=== PATIENT | male | born 1995 | race African-American/Black ===

== ENCOUNTER 2023-08-02 22:11 | Emergency (ER) | payer OTHER ==
[2023-08-02 22:16] VITALS: BP 112/74; PULSE 71; RESP 18; TEMP 99.2
--- NOTE | 2023-08-02 22:17 | ED ---
General Adult HPI - General Stated complaint: Tooth Pain Time Seen by Provider: 08/02/23 22:15 Source: RN notes reviewed - History of Present Illness Initial comments: 28-year-old -[place] male presents to the emergency department with a chief complaint of dental pain 4 days. She reports that he attempted to call his dentist however he is unable to get an appointment until September. He reports worsening pain to her upper and lower mouth region. Denies any known fevers, chills. He's been taking Tylenol Motrin with mild symptomatic relief. Denies difficulty in breathing. Denies recent antibiotic use. he reports that he believes he may have a dental abscess. - Related Data Previous Rx's Medication Instructions Recorded Amoxic-Pot Clav 875-125Mg 1 tab PO Q12HR #20 tab 08/02/23 [Augmentin 875-125] Ibuprofen [Motrin] 800 mg PO Q6HR #30 tab 08/02/23 Allergies Allergy/AdvReac Type Severity Reaction Status Date / Time No Known Allergies Allergy Verified 08/02/23 22:16 Review of Systems ROS Statement: Those systems with pertinent positive or pertinent negative responses have been documented in the HPI. ROS Other: All systems not noted in ROS Statement are negative. General Exam - General Exam Comments Initial Comments: Visual Physical Exam Vital signs reviewed General: Well-appearing, nontoxic, no acute distress. Head: Normocephalic, atraumatic Eyes: PERRLA, EOMI ENT: Airway patent Chest: Nonlabored breathing Skin: No visual rash, normal skin tone Neuro: Alert and oriented 3 Musculoskeletal: No gross abnormalities I performed the quick note portion of this exam, verbal signature Nona Blair PA-C General: Alert, in no acute distress Head: atraumatic normocephalic. Eyes PERRL, EOMI intact, mucous membranes moist, cavity with poor dentition. With severe tooth decay in upper and lower molars. No evidence of dental abscess. Airway patent. Respiratory: Lungs clear to auscultation bilaterally Cardiovascular: Heart rate regular rate and rhythm Abdominal: Soft without guarding or rebound Extremities: Normal inspection with full range of motion and normal capillary refill Neuroogic: alert and oriented 3, CN II-XII intact, able to ambulate with steady gait Skin: warm dry and intact with normal color Course Vital Signs 08/02/23 22:13 Temperature 99.2 F Pulse Rate 71 Respiratory 18 Rate Blood Pressure 112/74 O2 Sat by Pulse 99 Oximetry Medical Decision Making - Medical Decision Making Was pt. sent in by a medical professional or institution (GONSALO Dykes, PRODUCTION SUPPORT SPECIALIST, urgent care, hospital, or senior living...) When possible be specific @ -[No] Did you speak to anyone other than the patient for history (EMS, parent, family, police, friend...)? What history was obtained from this source @ -[No] Did you review nursing and triage notes (agree or disagree)? Why? @ -[I reviewed and agree with nursing and triage notes] Were old charts reviewed (outside hosp., previous admission, EMS record, old EKG, old radiological studies, urgent care reports/EKG's, senior living records)? Report findings @ -[No old charts were reviewed] Differential Diagnosis (chest pain, altered mental status, abdominal pain women, abdominal pain men, vaginal bleeding, weakness, fever, dyspnea, syncope, headache, dizziness, GI bleed, back pain, seizure, CVA, palpatations, mental health, musculoskeletal)? @ -[not applicable] EKG interpreted by me (3pts min.). @ -[As above] X-rays interpreted by me (1pt min.). @ -[None done] CT interpreted by me (1pt min.). @ -[None done] U/S interpreted by me (1pt. min.). @ -[None done] What testing was considered but not performed or refused? (CT, X-rays, U/S, labs)? Why? @ -[None] What meds were considered but not given or refused? Why? @ -[None] Did you discuss the management of the patient with other professionals (professionals i.e. GONSALO Dykes, PRODUCTION SUPPORT SPECIALIST, lab, RT, psych nurse, social services manager, weight inspector, teacher, seaman officer, rifle case repairer)? Give summary @ -[No] Was smoking cessation discussed for >3mins.? @ -[No] Was critical care preformed (if so, how long)? @ -[No] Were there social determinants of health that impacted care today? How? (Homelessness, low income, unemployed, alcoholism, drug addiction, transportation, low edu. Level, literacy, decrease access to med. care, detention, rehab)? @ -[No] Was there de-escalation of care discussed even if they declined (Discuss DNR or withdrawal of care, Hospice)? DNR status @ -[No] What co-morbidities impacted this encounter? (DM, HTN, Smoking, COPD, CAD, Cancer, CVA, ARF, Chemo, Hep., AIDS, mental health diagnosis, sleep apnea, morbid obesity)? @ -[None] Was patient admitted / discharged? Hospital course, mention meds given and route, prescriptions, significant lab abnormalities, going to OR and other pertinent info. @ -Discharged. This is a pleasant 28-year-old -[place] male who presents the emergency department with dental pain. Patient had a thorough history and physical exam performed on the ED. Physical exam reveals heart dentition with multiple teeth with dental caries. No evidence of dental abscess. Patient was provided a Toradol shot. He was given a prescription for Augmentin. He was provided smoking cessation education. Encouraged to follow up with dentist within 3-5 days. Return precautions were discussed including facial swelling, difficulty swallowing, fever develops. Patient discharged in stable condition. Case discussed with DAGMAR Acevedo who agrees with clinic or Undiagnosed new problem with uncertain prognosis? @ -[No] Drug Therapy requiring intensive monitoring for toxicity (Heparin, Nitro, Insulin, Cardizem)? @ -[No] Were any procedures done? @ -[No] Diagnosis/symptom? @ -Dental Pain Acute, or Chronic, or Acute on Chronic? @ -Acute Uncomplicated (without systemic symptoms) or Complicated (systemic symptoms)? @ -Uncomplicated Side effects of treatment? @ -[No] Exacerbation, Progression, or Severe Exacerbation? @ -[No] Poses a threat to life or bodily function? How? (Chest pain, [place], VT, pneumonia, PE, COPD, DKA, ARF, appy, cholecystitis, CVA, Diverticulitis, Homicidal, Suicidal, threat to staff... and all critical care pts) @ -Low likelihood Disposition Clinical Impression: Pain, dental, Dental caries Disposition: HOME SELF-CARE Condition: Stable Instructions (If sedation given, give patient instructions): Toothache (ED) Additional Instructions: Please take Tylenol or Motrin for pain as needed Please take antibiotics as prescribed Follow-up with primary dentist in 3-5 days Please return to the nearest emergency department and symptoms worsen or persist Prescriptions: Amoxic-Pot Clav 875-125Mg [Augmentin 875-125] 1 tab PO Q12HR #20 tab Ibuprofen [Motrin] 800 mg PO Q6HR #30 tab Is patient prescribed a controlled substance at d/c from ED?: No Referrals: None,Stated [Primary Care Provider] - 1-2 days Time of Disposition: 22:36
[2023-08-02] MEDS ORDERED: KETOROLAC 15 MG/ML 1 ML VIAL IM STA (22:33)
== END 2023-08-02 22:56 | disposition home or self-care (01) ==
LOC: EC 22:11
DX: K02.9 Dental caries, unspecified (principal)
CPT/HCPCS: 99282; 96372; J1885